=== PATIENT | male | born 2000 ===

== ENCOUNTER 2020-08-24 18:06 | Emergency (ER) | payer SELFPAY ==
[2020-08-24 18:11] VITALS: BP 125/87
== END 2020-08-25 01:35 ==
LOC: ED 18:06
DX: Z00.8 Encounter for other general examination (principal); Z53.21 Procedure and treatment not carried out due to patient leaving prior to being seen by health care provider

== ENCOUNTER 2021-04-03 02:11 | Emergency (ER) | payer SELFPAY | END 2021-04-03 02:25 | disposition left against medical advice (07) | LOC: ED 02:11 | DX: R53.1 Weakness (principal); Z53.21 Procedure and treatment not carried out due to patient leaving prior to being seen by health care provider ==